=== PATIENT | male | born 1980 | race African-American/Black ===

== ENCOUNTER 2024-11-20 09:03 | Emergency (ER) | payer SELFPAY ==
[2024-11-20] MEDS ORDERED: NA CHLORIDE 0.9% 1,000 ML ONE (09:16)
[2024-11-20 09:31] LABS: Absolute Basophils 0.1 K/uL (0-0.5); Absolute Eosinophils 0.2 K/uL (0-0.5); Absolute Lymphocytes (CBC) 1.9 K/uL (0.7-4.9); Absolute Monocytes 0.6 K/uL (0.1-1.3); Absolute Neutrophil 4.7 K/uL (1.8-8.0); Basophils % 1.3 % (0-1.3); Hematocrit 39.9 % (39.6-49.0); Hemoglobin 13.7 g/dL (13.6-17.9); Lymphocytes % 24.9 % (15.3-44.8); MCH 30.9 pg (27.0-35.0); MCHC 34.2 g/dL (32.0-36.0); MCV 90.4 fL (80-100); MPV 8.7 fL (7.6-11.3); Monocytes % 8.4 % (3.3-12.3); Neutrophils % 62.4 % (41.7-73.7); Platelets 295 thou/uL (152-406); RBC Red Blood Cell Count 4.42 M/uL (4.33-5.43); Red Cell Distribution Width 12.9 % (12.1-15.2)
[2024-11-20 10:47] LABS: Albumin 2.9 g/dL (3.4-5.0); Albumin/Globulin Ratio 0.9 (1.1-1.8); Alkaline Phosphatase 111 U/L (45-117); BUN Blood Urea Nitrogen 10 mg/dL (7-18); Bicarbonate 23 mEq/L (21-32); Bilirubin Total 0.3 mg/dL (0.2-1.0); Globulin 3.4 g/dL (2.3-3.5); Glomerular Filtration Rate 112 ml/min (=/>90); Glucose Level 260 mg/dL (74-106); Lipase 35 U/L (13-75); Protein, Total 6.3 g/dL (6.4-8.2); Sodium Level 136 mEq/L (136-145)
[2024-11-20 11:04] LABS: ALT/SGPT < 14 U/L (16-61); AST/SGOT < 10 U/L (15-37)
--- NOTE | 2024-11-20 11:08 | ER ---
Nurse's Notes [facility] Name: Avery Velasco Age: 44 yrs Sex: Male : 1980 Arrival Date: 11/20/2024 Time: 09:03 Bed 7 Private MD: Diagnosis: Other headache syndrome Presentation: 11/20 09:06 Chief complaint: EMS states: Headache x 2 days and brief chest pain this morning, hb resolved after IV Tylenol, Reglan, and NS to 20g LAC, and ASA 324 mg PO. Coronavirus screen: At this time, the client does not indicate any symptoms associated with coronavirus-19. Ebola Screen: No symptoms or risks identified at this time. Initial Sepsis Screen: Does the patient meet any 2 criteria? No. Patient's initial sepsis screen is negative. Does the patient have a suspected source of infection? No. Patient's initial sepsis screen is negative. Risk Assessment: Do you want to hurt yourself or someone else? Patient reports no desire to harm self or others. Onset of symptoms was November 18, 2024. 09:06 Method Of Arrival: EMS: [facility] hb 09:06 Acuity: BRENDEN 3 hb Triage Assessment: 09:08 General: Appears in no apparent distress. Behavior is calm, cooperative. Pain: Denies hb pain. Neuro: GCS 15. Cardiovascular: Patient's skin is warm and dry. Respiratory: Respiratory effort is even, unlabored, Respiratory pattern is regular, symmetrical. Historical: - Allergies: 09:05 No Known Allergies; hb - PMHx: 09:05 Hypertension; DM2; hb - Immunization history:: Adult Immunizations up to date. - Infectious Disease History:: Denies. - Social history:: Smoking status: . Screenin:16 [facility] ED Fall Risk Assessment (Adult) History of falling in the last 3 months, ph including since admission No falls in past 3 months (0 pts) Confusion or Disorientation No (0 pts) Intoxicated or Sedated No (0 pts) Impaired Gait No (0 pts) Mobility Assist Device Used No (0 pt) Altered Elimination No (0 pt) Score/Fall Risk Level 0 - 2 = Low Risk Oriented to surroundings, Maintained a safe environment, Hourly rounding (assess needs \T\ fall precautionary measures) done. Abuse screen: Denies threats or abuse. Denies injuries from another. Nutritional screening: No deficits noted. Tuberculosis screening: No symptoms or risk factors identified. Assessment: 10:15 General: Appears in no apparent distress. comfortable, Behavior is calm, cooperative. ph Pain: Denies pain. Neuro: Level of Consciousness is awake, alert, obeys commands, Oriented to person, place, time, situation. Cardiovascular: Capillary refill < 3 seconds in bilateral fingers Patient's skin is warm and dry. Respiratory: Airway is patent Respiratory effort is even, unlabored. GI: No signs and/or symptoms were reported involving the gastrointestinal system. Derm: Skin is pink, warm \T\ dry. Vital Signs: 09:04 BP 139 / 84; Pulse 82; Resp 16; Temp 98.2(O); Pulse Ox 96% on R/A; Weight 95.25 kg; hb Height 5 ft. 10 in. ; Pain 0/10; 10:17 BP 128 / 87; Pulse 88; Resp 18; Pulse Ox 98% on R/A; ph 11:00 BP 136 / 78; Pulse 81; Resp 18; Pulse Ox 98% on R/A; ph 12:06 BP 142 / 87; Pulse 84; Resp 18; Temp 97.8; Pulse Ox 99% on R/A; ph 09:04 Body Mass Index 30.13 (95.25 kg, 177.8 cm) hb 09:04 Pain Scale: Adult hb ED Course: 09:04 Patient arrived in ED. ph 09:04 Greg Spencer MD is Attending Physician. sp3 09:06 Arm band placed on. hb 09:08 Triage completed. hb 09:08 Ryann Alvarado, RN is Primary Nurse. ph 09:08 No provider procedures requiring assistance completed. hb 09:23 CBC with Diff Sent. bc6 09:23 CMP Sent. bc6 09:23 Lipase Sent. bc6 09:23 Initial lab(s) drawn, by me, sent to lab. Maintain EMS IV. Dressing intact. Good blood bc6 return noted. Site clean \T\ dry. Gauge \T\ site: 20 \T\ LAC. Flushed with 10 mL NS. 10:16 Patient has correct armband on for positive identification. Bed in low position. Call ph light in reach. Side rails up X 1. Pulse ox on. NIBP on. 12:05 IV discontinued, intact, bleeding controlled, No redness/swelling at site. Pressure ph dressing applied. Administered Medications: 09:28 Drug: NS 0.9% IV 1000 ml IV at 1 bolus Per protocol; to be given as a bolus over 60 hb minutes Route: IV; Rate: 1 bolus; Site: left antecubital; 10:47 Follow up: Response: No adverse reaction; IV Status: Completed infusion; IV Intake: hb 1000ml Medication: 10:16 VIS not applicable for this client. ph Point of Care Testing: Blood Glucose: 10:48 Blood Glucose: 267 mg/dL; hb Ranges: Intake: 10:47 IV: 1000ml; Total: 1000ml. hb Outcome: 11:08 Discharge ordered by MD. fink 12:05 Discharged to home ambulatory, with family, ph 12:05 Condition: good 12:05 Discharge instructions given to patient, Instructed on discharge instructions, follow up and referral plans. medication usage, Demonstrated understanding of instructions, follow-up care, medications, Prescriptions given X 1, 12:06 Patient left the ED. ph Signatures: Ryann Alvarado RN RN Swetha Mccarthy RN RN Greg Spencer MD MD sp3 Tatiana Caro 6
--- NOTE | 2024-11-20 11:09 | EDPHYS ---
Physician Documentation [facility] Name: Avery Velasco Age: 44 yrs Sex: Male : 1980 Arrival Date: 11/20/2024 Time: 09:03 Bed 7 Private MD: ED Physician Greg Spencer HPI: 11/20 09:49 This 44 yrs old Male presents to ER via EMS with complaints of Headache. 3 09:49 44-year-old male with history of hypertension, diabetes and migraines now presents to [facility] the ED via EMS for chief complaint headache and hyperglycemia. Patient was seen by EMS yesterday for hyperglycemia but elected not to come to the ED. He had had a headache yesterday as well. Today's blood sugar was in the 400 range and EMS brought patient to the ED. They were able to give Reglan and IV Tylenol which resolved his headache completely by the time of arrival. He currently has no complaints whatsoever. ROS negative for ongoing headache, neck pain, chest pain, shortness of breath, abdominal pain, nausea, vomiting, diarrhea, syncope, near syncope, fever, known sick contacts, travel history or any other signs or symptoms on ROS at this time. He currently takes insulin 70/30 for his diabetes and was recently taken off his metformin.. Historical: - Allergies: 09:05 No Known Allergies; hb - PMHx: 09:05 Hypertension; DM2; hb - Immunization history:: Adult Immunizations up to date. - Infectious Disease History:: Denies. - Social history:: Smoking status: . ROS: 09:50 Constitutional: Negative for fever, chills, and weight loss, Eyes: Negative for injury, sp3 pain, redness, and discharge, ENT: Negative for injury, pain, and discharge, Neck: Negative for injury, pain, and swelling, Cardiovascular: Negative for chest pain, palpitations, and edema, Respiratory: Negative for shortness of breath, cough, wheezing, and pleuritic chest pain, Abdomen/GI: Negative for abdominal pain, nausea, vomiting, diarrhea, and constipation, Back: Negative for injury and pain, MS/Extremity: Negative for injury and deformity, Skin: Negative for injury, rash, and discoloration, Allergy/Immunology: Negative for hives, rash, and allergies, Hematologic/Lymphatic: Negative for swollen nodes, abnormal bleeding, and unusual bruising, 09:50 All other systems are negative, Exam: 09:50 Constitutional: This is a well developed, well nourished patient who is awake, alert, sp3 and in no acute distress. Head/Face: Normocephalic, atraumatic. Eyes: Pupils equal round and reactive to light, extra-ocular motions intact. Lids and lashes normal. Conjunctiva and sclera are non-icteric and not injected. Cornea within normal limits. Periorbital areas with no swelling, redness, or edema. ENT: Nares patent. No nasal discharge, no septal abnormalities noted. External auditory canals are clear. Oropharynx with no redness, swelling, or masses, exudates, or evidence of obstruction, uvula midline. Mucous membranes moist. Neck: Trachea midline, no thyromegaly or masses palpated, and no cervical lymphadenopathy. Supple, full range of motion without nuchal rigidity, or vertebral point tenderness. No Meningismus. Chest/axilla: Normal chest wall appearance and motion. Nontender with no deformity. No lesions are appreciated. Cardiovascular: Regular rate and rhythm with a normal S1 and S2. No gallops, murmurs, or rubs. Normal PMI, no JVD. No pulse deficits. Respiratory: Lungs have equal breath sounds bilaterally, clear to auscultation and percussion. No rales, rhonchi or wheezes noted. No increased work of breathing, no retractions or nasal flaring. Abdomen/GI: Soft, non-tender, with normal bowel sounds. No distension or tympany. No guarding or rebound. No evidence of tenderness throughout. Back: No spinal tenderness. No costovertebral tenderness. Full range of motion. Skin: Warm, dry with normal turgor. Normal color with no rashes, no lesions, and no evidence of cellulitis. MS/ Extremity: Pulses equal, no cyanosis. Neurovascular intact. Full, normal range of motion. Neuro: Awake and alert, GCS 15, oriented to person, place, time, and situation. Cranial nerves II-XII grossly intact. Motor strength 5/5 in all extremities. Sensory grossly intact. Cerebellar exam normal. Normal gait. Psych: Awake, alert, with orientation to person, place and time. Behavior, mood, and affect are within normal limits. Vital Signs: 09:04 BP 139 / 84; Pulse 82; Resp 16; Temp 98.2(O); Pulse Ox 96% on R/A; Weight 95.25 kg; hb Height 5 ft. 10 in. ; Pain 0/10; 10:17 BP 128 / 87; Pulse 88; Resp 18; Pulse Ox 98% on R/A; ph 11:00 BP 136 / 78; Pulse 81; Resp 18; Pulse Ox 98% on R/A; ph 12:06 BP 142 / 87; Pulse 84; Resp 18; Temp 97.8; Pulse Ox 99% on R/A; ph 09:04 Body Mass Index 30.13 (95.25 kg, 177.8 cm) hb 09:04 Pain Scale: Adult hb MDM: 09:04 Medical Screening Exam initiated sp3 09:51 Data reviewed: vital signs, nurses notes, EMS record, old medical records, lab test sp3 result(s). ED course: 44-year-old male with a now resolved headache and ongoing hyperglycemia. Blood sugar pending. Will assess electrolytes and hydration status with CO2 pending. Disposition probable discharge with follow-up to PCP for ongoing diabetes management. I am not concerned about DKA, sepsis, shock or any other critical process at this time.. 11:07 ED course: Blood sugar of 260 and no anion gap. Patient has normal vital signs and has sp3 no current symptoms or complaints. Will safely discharge patient home at this time. Headache is resolved.. 11/20 09:05 Order name: CBC with Diff; Complete Time: 10:15 sp3 11/20 09:05 Order name: CMP; Complete Time: 11:07 sp3 11/20 09:05 Order name: Lipase; Complete Time: 11:07 sp3 11/20 10:58 Order name: Glucose, Ancillary Testing; Complete Time: 11:07 EDMS 11/20 09:05 Order name: IV Saline Lock; Complete Time: 09:23 sp3 11/20 09:05 Order name: Labs collected and sent; Complete Time: 09:23 sp3 11/20 09:05 Order name: Accucheck; Complete Time: 10:47 sp3 11/20 09:37 Order name: Labs - recollect needed: recollect green top; Complete Time: 10:03 bd 11/20 10:04 Order name: Labs - recollect needed: recollect green top, inside lab will come collect bd it; Complete Time: 10:47 Administered Medications: 09:28 Drug: NS 0.9% IV 1000 ml IV at 1 bolus Per protocol; to be given as a bolus over 60 hb minutes Route: IV; Rate: 1 bolus; Site: left antecubital; 10:47 Follow up: Response: No adverse reaction; IV Status: Completed infusion; IV Intake: hb 1000ml Point of Care Testing: Blood Glucose: 10:48 Blood Glucose: 267 mg/dL; hb Ranges: Critical Glucose Levels:Adult <50 mg/dl or >400 mg/dl <40 mg/dl or >180 mg/dl Disposition Summary: 11/20/24 11:08 Discharge Ordered Notes: Location: Home sp3 Condition: Stable sp3 Diagnosis - Other headache syndrome sp3 Followup: sp3 - With: Private Physician - When: Upon discharge from the Emergency Department - Reason: Continuance of care Discharge Instructions: - Discharge Summary Sheet sp3 - General Headache Without Cause sp3 Forms: - Medication Reconciliation Form sp3 - Antibiotic Education sp3 - Prescription Opioid Use sp3 - Patient Portal Instructions sp3 - Leadership Thank You Letter sp3 Prescriptions: - Reglan 10 mg Oral Tablet - take 1 tablet ORAL route every 6 hours take 30 minutes before meals and at sp3 bedtime; 20 tablet; Refills: 0, Product Selection Permitted Signatures: Dispatcher [employer] [facility] Tammie Morales Heather, RN RN hb Patel, Setul, MD MD sp3 Corrections: (The following items were deleted from the chart) 09:51 09:50 Constitutional: This is a well developed, well nourished patient who is awake, sp3 alert, and in no acute distress. Head/Face: Normocephalic, atraumatic. Eyes: Pupils equal round and reactive to light, extra-ocular motions intact. Lids and lashes normal. Conjunctiva and sclera are non-icteric and not injected. Cornea within normal limits. Periorbital areas with no swelling, redness, or edema. Neck: Trachea midline, no thyromegaly or masses palpated, and no cervical lymphadenopathy. Supple, full range of motion without nuchal rigidity, or vertebral point tenderness. No Meningismus. Chest/axilla: Normal chest wall appearance and motion. Nontender with no deformity. No lesions are appreciated. Cardiovascular: Regular rate and rhythm with a normal S1 and S2. No gallops, murmurs, or rubs. Normal PMI, no JVD. No pulse deficits. Respiratory: Lungs have equal breath sounds bilaterally, clear to auscultation and percussion. No rales, rhonchi or wheezes noted. No increased work of breathing, no retractions or nasal flaring. Abdomen/GI: Soft, non-tender, with normal bowel sounds. No distension or tympany. No guarding or rebound. No evidence of tenderness throughout. Back: No spinal tenderness. No costovertebral tenderness. Full range of motion. Skin: Warm, dry with normal turgor. Normal color with no rashes, no lesions, and no evidence of cellulitis. MS/ Extremity: Pulses equal, no cyanosis. Neurovascular intact. Full, normal range of motion. Psych: Awake, alert, with orientation to person, place and time. Behavior, mood, and affect are within normal limits. sp3
[2024-11-20 12:43] VITALS: BP 142/87; TEMP 97.8; O2SAT 99
== END 2024-11-20 12:06 | disposition home or self-care (01) ==
LOC: ER 09:03
DX: G44.89 Other headache syndrome (principal); I10 Essential (primary) hypertension; E11.9 Type 2 diabetes mellitus without complications
CPT/HCPCS: 36415; 80053; 82947; 83690; 85025; J7030